=== PATIENT | male | born 1975 | race Two or more races ===

== ENCOUNTER 2024-06-03 18:44 | Emergency (ER) | payer SELFPAY ==
[~2024-06-03] VITALS: Ht 160 cm; Wt 70.0 kg
[2024-06-03] MEDS ORDERED: METH4PAK PO (19:21)
[2024-06-03] MEDS ORDERED: AZIT-43 PO (19:21)
--- NOTE | 2024-06-03 19:22 | ED.PDOC ---
SOB-HPI HPI Comments THIS IS A 48-YEAR-OLD MALE PRESENTS TO THE ED COLD-LIKE SYMPTOMS X1 WEEK. PATIENT COMPLAINING OF THROAT PAIN, THROAT SWELLING, COUGH, DRAINAGE, FEVERS AT HOME. HAS BEEN TAKING [id number] MEDICATIONS WITH LITTLE RELIEF. HE DENIES CHEST PAIN, SHORTNESS OF BREATH, DIFFICULTY BREATHING, NAUSEA, VOMITING, DIARRHEA ABDOMINAL PAIN. Chief Complaint: Flu like Time Seen by MD: 18:49 Primary Care Provider: none Reviewed notes: Nurses Notes, Hotel Front Office Manager Notes, Medications, Allergies Information Source: Patient Mode of Arrival: Ambulatory Past Medical History PAST MEDICAL HISTORY: Denies Surgical History: Denies all surgeries Family History Family History: Reviewed,noncontributory to illness Social History Smoker: Non-Smoker Alcohol: Denies ETOH Use Drugs: Denies Drug Use Constitutional: reports: chills, fatigue, fever; denies: diaphoresis, malaise, sweats, weakness, others EENTM: reports: throat pain, throat swelling; denies: blurred vision, double vision, ear bleeding, ear discharge, ear drainage, ear pain, ear ringing, eye pain, eye redness, hearing loss, mouth pain, mouth swelling, nasal discharge, nose bleeding, nose congestion, nose pain, photophobia, tearing, voice changes, others Respiratory: reports: cough; denies: hemoptysis, orthopnea, SOB at rest, shortness of breath, SOB with excertion, stridor, wheezing, others Cardiovascular: denies: chest pain, dizzy spells, diaphoresis, Dyspnea on exertion, edema, irregular heart beat, left arm pain, lightheadedness, palpitations, PND, syncope, others Gastrointestinal: denies: abdomen distended, abdominal pain, blood streaked bowels, constipated, diarrhea, dysphagia, difficulty swallowing, hematemesis, melena, nausea, poor appetite, poor fluid intake, rectal bleeding, rectal pain, vomiting, others Genitourinary: denies: burning, dysuria, flank pain, frequency, hematuria, incontinence, penile discharge, penile sore, pain, testicle pain, testicle swelling, urgency, others Neurological: denies: dizziness, fainting, headache, left sided numbness, left sided weakness, numbness, paresthesia, pre-existing deficit, right sided numbness, right sided weakness, seizure, speech problems, tingling, tremors, weakness, others Musculoskeletal: denies: back pain, gout, joint pain, joint swelling, muscle pain, muscle stiffness, neck pain, others Integumetry: denies: bruises, change in color, change in hair/nails, dryness, laceration, lesions, lumps, rash, wounds, others Allergic/Immunocompromised: denies: Difficulty Healing, Frequent Infections, Hives, Itching, others Hematologic/Lymphatic: denies: anemia, blood clots, easy bleeding, easy bruising, swollen glands, others Endocrine: denies: excessive hunger, excessive sweating, excessive thirst, excessive urination, flushing, intolerance to cold, intolerance to heat, unexplained weight gain, unexplained weight loss, others Psychiatric: denies: anxiety, bipolar disorder, depression, hopeless, panic disorder, schizophrenia, sleepless, suicidal, others Physical Exam General Appearance: No Apparent Distress, Normal HEENT: Pharyngeal Erythema, TMs Normal, Tonsillar Exudate (TONSILS GRADE 2 WITH EXUDATE BILATERAL) Neck: Full Range of Motion, Non-Tender Respiratory: Lungs Clear, No Accessory Muscle Use, No Respiratory Distress, Normal Breath Sounds Cardiovascular: No Edema, No JVD, No Murmur, No Gallop, Normal Peripheral Pulses, Regular Rate/Rhythm Breast Exam: Deferred Gastrointestinal: No Organomegaly, Non Tender, No Pulsatile Mass, Normal Bowel Sounds, Soft Genitalia: Deferred Pelvic: Deferred Rectal: Deferred Extremities: Normal capillary refill, Normal inspection, Normal range of motion, Non-tender, No pedal edema Musculoskeletal : Apperance: Normal Neurologic: Alert, sample mounter II-XII nml as Tested, No Motor Deficits, Normal Affect, Normal Mood, No Sensory Deficits Cerebellar Function: Normal Reflexes: Normal Skin: Dry, Normal Color, Warm Lymphatic: No Adenopathy Was a procedure done? Was a procedure done?: No Differential Dx Differential Diagnosis: Pneumonia X-Ray, Labs, Meds, VS Vital Signs Date Time Temp Pulse Resp B/P (MAP) Pulse Ox O2 Delivery O2 Flow Rate FiO2 06/03/24 19:07 97 17 97 Room Air 06/03/24 19:07 99.9 98 17 141/78 (99) 99 99.9 06/03/24 18:55 100.5 119 19 144/72 (96) 99 X-Ray, Labs, Meds, VS Comment LIKELY BACTERIAL START PATIENT ON AZITHROMYCIN AND MEDROL DOSEPAK. ADVISED TO REST INCREASE P.O. FLUIDS WITH ELECTROLYTES. [id number] TYLENOL OR MOTRIN NEEDED FOR PAIN AND FEVER. FOLLOW UP WITH PCP IN 2-3 DAYS NECESSARY. ER RETURN PRECAUTIONS GIVEN. PATIENT AGREES WITH DISCHARGE PLAN OF CARE. Time of 1ST Reevaluation: 19:16 Reevaluation 1ST: Unchanged Patient Education/Counseling: Diagnosis, Treatment, Prognosis, Need For Follow Up Family Education/Counseling: No Family Present Departure 1 Departure Time of Disposition: 19:16 Impression: Primary Impression: Respiratory infection, upper Qualified Codes: J03.90 - Acute tonsillitis, unspecified Disposition: HOME / SELF CARE / HOMELESS Condition: Stable e-Prescriptions Methylprednisolone (Medrol Dosepak) 4 Mg Aiden 4 MG PO UD for 6 Days, #21 TAB UAD Prov: MAKENNA GOLDSTEIN 06/03/24 Azithromycin (Azithromycin) 250 Mg Tab 250 MG PO DAILY MDD 500 for 5 Days, #6 TAB 0 Refills 2 TABLETS ORALLY ON DAY ONE, THEN 1 TABLET ORALLY DAILY FOR 4 DAYS Prov: MAKENNA GOLDSTEIN 06/03/24 Discharged With: Self Critical Care Note Critical Care Time?: No Stability Stability form required: No Heart Score Heart Score: Heart Score Response (Comments) Value History N/A 0 EKG N/A 0 Age 45-64 1 Risk Factors N/A 0 Troponin N/A 0 Total 1 MAKENNA GOLDSTEIN Jun 03, 2024 19:22
[2024-06-03 19:49] VITALS: BP 114/77
[2024-06-03] MEDS: IBUPROFEN 800 MG TAB PO ONE (20:06)
[2024-06-03] MEDS: ACETAMINOPHEN 325 MG TAB PO ONE (20:07)
[2024-06-03 21:07] VITALS: PULSE 94; RESP 18; TEMP 100.8; O2SAT 96
== END 2024-06-03 21:21 | disposition home or self-care (01) ==
LOC: ER 18:44
DX: J06.9 Acute upper respiratory infection, unspecified (principal)